=== PATIENT | male | born 1990 | race Caucasian/White ===

== ENCOUNTER 2018-06-10 20:37 | Emergency (ER) | payer SELFPAY ==
[2018-06-10 20:49] VITALS: BP 122/73; PULSE 86; TEMP 98.8; BMI 22.4
[2018-06-10] MEDS ORDERED: DEXAMETHASONE LIQUID 0.5 MG/5 ML 240 ML BULK BOTTLE PO ONE (22:04)
[2018-06-10] MEDS ORDERED: PENICILLIN G BENZATHINE 1,200,000 UNIT/2 ML PFS IM ONE (22:04)
[2018-06-10] MEDS ORDERED: DEXAMETHASONE SOD PHOSPHATE 10 MG/1 ML VIAL ONE (22:07)
[2018-06-10] MEDS ORDERED: PENICILLIN G BENZATHINE 2,400,000 UNIT/4 ML PFS ONE (22:08)
--- NOTE | 2018-06-10 22:08 | PDOC ---
History of Present Illness - General Chief Complaint: Sore Throat Stated Complaint: FEVER AND SORE THROAT Time Seen by Provider: 06/10/18 21:42 - History of Present Illness Initial Comments: 06/10/18 22:05 28 y/o male without comorbidities presents for evaluation of sore throat and fever 2 days Past History - Past Medical History Home Medications: Ambulatory Orders NK [No Known Home Medication] 06/10/18 - Suicide/Smoking/Psychosocial Hx Smoking History: Unknown if ever smoked Hx Alcohol Use: No Drug/Substance Use Hx: No Review of Systems - Review of Systems Constitutional: Yes: Fever HEENTM: Yes: Throat Pain, Difficulty Swallowing *Physical Exam - Vital Signs Last Vital Signs Temp Pulse Resp BP Pulse Ox 98.8 F 86 20 122/73 95 06/10/18 20:45 06/10/18 20:45 06/10/18 20:45 06/10/18 20:45 06/10/18 20:45 - Physical Exam Comments: 06/10/18 22:05 HEAD: NC/AT EYES: Conjuntiva clear Ears: Canals and TM's normal NOSE: No d/c THROAT: Moist mucous membrances, oral pharanx erythemic with exudate, uvula midline NECK: Supple without adenopathy CARDIAC: S1 S2 LUNGS: CTA Full and Equal breath sounds ABDOMEN: Soft NT ND MS: Full ROM in all joints without edema NEUROLOGIC: No gross sensory or motor deficits, NVID SKIN: Normal color and temperature no lesions or rashes Medical Decision Making - Medical Decision Making 06/10/18 22:06 We'll treat presumptively for strep throat with Bicillin *DC/Admit/Observation/Transfer Diagnosis at time of Disposition: Strep pharyngitis - Discharge Dispostion Disposition: HOME Condition at time of disposition: Stable Decision to Admit order: No - Referrals Referrals: Lolis Thompson MD [Staff Physician] - - Patient Instructions Printed Discharge Instructions: Strep Throat, DI for Strep Throat Additional Instructions: He do not require further treatment. He will given a one-time injection of Bicillin. He may take Tylenol as directed for pain should you require additional pain medication. Follow-up with internal medicine in one to 2 days for further evaluation and treatment options. - Post Discharge Activity
== END 2018-06-10 22:21 | disposition home or self-care (01) ==
LOC: JERFT 20:37
DX: J02.0 Streptococcal pharyngitis (principal); B95.5 Unspecified streptococcus as the cause of diseases classified elsewhere
CPT/HCPCS: 99281-25

== ENCOUNTER 2019-03-14 20:38 | Emergency (ER) | payer OTHER ==
[2019-03-14 20:45] VITALS: BP 122/72; BMI 22.4
[2019-03-14] MEDS ORDERED: IBUPROFEN 600 MG TABLET (FP) PO ONE ×2 (20:46→21:24)
--- NOTE | 2019-03-14 20:46 | PDOC ---
Rapid Medical Evaluation Chief Complaint: Sore Throat Time Seen by Provider: 03/14/19 20:42 Medical Evaluation: Allergies Allergy/AdvReac Type Severity Reaction Status Date / Time No Known Allergies Allergy Verified 06/10/18 22:06 03/14/19 20:43 HPI: Sore throat and flu like symptoms x4 days PE: OP clear ORDERS: Rapid strep Motrin (Tylenol prior to arrival) Discharge Disposition - Diagnosis Acute pharyngitis - Referrals - Patient Instructions - Post Discharge Activity
--- NOTE | 2019-03-14 22:29 | PDOC ---
History of Present Illness - General Chief Complaint: Sore Throat Stated Complaint: SORE THROAT Time Seen by Provider: 03/14/19 20:42 History Source: Patient - History of Present Illness Initial Comments: 03/14/19 22:27 Chief complaint: Fever Patient is a healthy 29-year-old male with 3 to 4 days of fever, cough, sore throat. Patient vomited yesterday but not today. Patient is drinking Powerade in the ER. Patient took Tylenol prior to coming. states that Tylenol and Motrin have not been helping. She states she was diagnosed with the flu 2 days ago. GENERAL/CONSTITUTIONAL: +fever, no: Weakness. dizziness HEAD, EYES, EARS, NOSE AND THROAT: No change in vision. No ear pain or discharge. No sore throat. CARDIOVASCULAR: No chest pain RESPIRATORY: No shortness of breath +cough GASTROINTESTINAL: No pain, nausea, +vomiting yesterday, diarrhea or constipation GENITOURINARY: No dysuria MUSCULOSKELETAL: No neck or back pain SKIN: No rash NEUROLOGIC: No headache, vertigo, loss of consciousness, or loss of sensation. GENERAL: The patient is awake, alert, and fully oriented, in no acute distress. HEAD: Normal with no signs of trauma. EYES: Pupils equal, round and reactive to light, sclera anicteric, conjunctiva clear. ENT: pharynx: Mild erythema, no exudate, uvula midline NECK: supple CHEST: clear, nontender, rr ABD: soft, nontender BACK: no tenderness or signs of injury EXTREMITIES: Normal range of motion, no edema. NEUROLOGICAL: Normal speech, normal gait. SKIN: Warm, Dry Past History - Past Medical History Allergies/Adverse Reactions: Allergies Allergy/AdvReac Type Severity Reaction Status Date / Time No Known Allergies Allergy Verified 03/14/19 20:45 Home Medications: Ambulatory Orders NK [No Known Home Medication] 06/10/18 COPD: No - Psycho Social/Smoking Cessation Hx Smoking History: Never smoked Hx Alcohol Use: No Drug/Substance Use Hx: No *Physical Exam - Vital Signs Last Vital Signs Temp Pulse Resp BP Pulse Ox 102.9 F H 131 H 20 122/72 99 03/14/19 20:42 03/14/19 20:42 03/14/19 20:42 03/14/19 20:42 03/14/19 20:42 ED Treatment Course - Medications Given in the ED: ED Medications Discontinued Medications Generic Name Dose Route Start Last Admin Trade Name Wendy PRN Reason Stop Dose Admin Ibuprofen 600 mg 03/14/19 20:46 03/14/19 21:26 Motrin - PO 03/14/19 20:47 600 mg ONCE ONE Administration Medical Decision Making - Medical Decision Making 03/14/19 22:28 Healthy 29-year-old male with fever, cough, sore throat for 3 to 4 days. states that fever is not being well controlled with Tylenol and Motrin. Patient vomited yesterday but not today. was diagnosed with flu 2 days ago. Patient's abdominal exam is benign. Patient is drinking fluids. Patient does not appear acutely ill although he is running 102.9 fever and his heart rate is 131. Patient was given Motrin at the beginning of the exam. Will reassess. Swabs for flu and strep were sent. 03/14/19 22:41 Patient's temperature is now 100.3. Awaiting flu and strep screening from lab. Signed out to FADY Yusuf for rest of evaluation and management Discharge - Discharge Information Problems reviewed: Yes Clinical Impression/Diagnosis: Flu-like symptoms Acute pharyngitis Qualifiers: Pharyngitis/tonsillitis etiology: unspecified etiology Qualified Code(s): J02.9 - Acute pharyngitis, unspecified - Follow up/Referral Referrals: Faustino Gannon MD [Primary Care Provider] - - Patient Discharge Instructions - Post Discharge Activity
[2019-03-14 22:39] VITALS: TEMP 100.3
[2019-03-14 22:45] VITALS: PULSE 104
--- NOTE | 2019-03-14 23:23 | PDOC ---
*Physical Exam - Vital Signs Last Vital Signs Temp Pulse Resp BP Pulse Ox 100.3 F H 104 H 17 122/72 98 03/14/19 22:39 03/14/19 22:39 03/14/19 22:39 03/14/19 20:42 03/14/19 22:39 - Physical Exam General Appearance: Yes: Nourished, Appropriately Dressed. No: Apparent Distress HEENT: positive: KEN, Normal ENT Inspection, Pharynx Normal Neck: positive: Supple Respiratory/Chest: positive: Lungs Clear, Normal Breath Sounds. negative: Respiratory Distress, Accessory Muscle Use Cardiovascular: positive: Regular Rhythm, Regular Rate Musculoskeletal: positive: Normal Inspection Extremity: positive: Normal Inspection Integumentary: positive: Normal Color Neurologic: positive: Fully Oriented, Alert, Normal Mood/Affect, Normal Response <Anthony Garza - Last Filed: 03/14/19 23:29> - Vital Signs Last Vital Signs Temp Pulse Resp BP Pulse Ox 100.3 F H 104 H 17 122/72 98 03/14/19 22:39 03/14/19 22:39 03/14/19 22:39 03/14/19 20:42 03/14/19 22:39 <Chris Coronel - Last Filed: 03/15/19 02:31> ED Treatment Course - Medications Given in the ED: ED Medications Discontinued Medications Generic Name Dose Route Start Last Admin Trade Name Freq PRN Reason Stop Dose Admin Ibuprofen 600 mg 03/14/19 20:46 03/14/19 21:26 Motrin - PO 03/14/19 20:47 600 mg ONCE ONE Administration <Anthony Garza - Last Filed: 03/14/19 23:29> - Medications Given in the ED: ED Medications Discontinued Medications Generic Name Dose Route Start Last Admin Trade Name Freq PRN Reason Stop Dose Admin Ibuprofen 600 mg 03/14/19 20:46 03/14/19 21:26 Motrin - PO 03/14/19 20:47 600 mg ONCE ONE Administration <Chris Coronel - Last Filed: 03/15/19 02:31> Medical Decision Making - Medical Decision Making 03/14/19 23:29 I assumed care of this 29-year-old male presented with complaint of 3-day history of fevers, body aches, nasal congestion and cough status post exposure to flu. Rapid flu test came back positive influenza B. Strep test negative. Patient with fever of 102.9 on presentation which has improved to 100.2 after Motrin. Patient clinically stable for patient management on Tamiflu twice daily for 5 days, Tessalon Perles as needed for cough and Atrovent nasal sprays for nasal congestion with advised to alternate between Tylenol Motrin as needed for fever and increase fluid intake with PCP follow-up. <Anthony Garza - Last Filed: 03/14/19 23:29> - Medical Decision Making 03/15/19 02:31 The patient was seen and evaluated in conjunction with FADY Garza under my direct supervision, ancillary studies were reviewed. I agree with the plan as outlined by FADY Garza. <Chris Coronel - Last Filed: 03/15/19 02:31> Discharge - Discharge Information Problems reviewed: Yes - Admission No <Anthony Garza - Last Filed: 03/14/19 23:29> <Chris Coronel - Last Filed: 03/15/19 02:31> - Discharge Information Clinical Impression/Diagnosis: Influenza B Acute pharyngitis Qualifiers: Pharyngitis/tonsillitis etiology: unspecified etiology Qualified Code(s): J02.9 - Acute pharyngitis, unspecified Condition: Stable Disposition: HOME - Additional Discharge Information Prescriptions: Benzonatate [Tessalon Pearls -] 100 mg PO Q8H PRN #20 capsule PRN Reason: Cough Ipratropium [place] 2 spray NS BID PRN #1 spray PRN Reason: nasal congestion Ondansetron [Zofran *Odt*] 4 mg SL TID #21 od.tablet Oseltamivir Phosphate [Tamiflu -] 75 mg PO DAILY #10 capsule - Follow up/Referral Referrals: Faustino Gannon MD [Primary Care Provider] - - Patient Discharge Instructions Patient Printed Discharge Instructions: DI for Viral Upper Respiratory Infection -- Adult, DI for Influenza -- Adult Additional Instructions: Your strep test is negative. Your symptoms likely caused by viral infection. Take prescribed medication as prescribed for viral infection. Alternate between Tylenol Motrin as needed for fever. Increase fluid intake. Follow-up with primary care - Post Discharge Activity
== END 2019-03-15 00:12 | disposition home or self-care (01) ==
LOC: JERFT 20:38 → JER 20:38
DX: J10.1 Influenza due to other identified influenza virus with other respiratory manifestations (principal)
CPT/HCPCS: 87070; 87077; 87804; 87880; 99282-25

== ENCOUNTER 2023-12-15 13:24 | Emergency (ER) | payer OTHER ==
[2023-12-15 13:31] VITALS: BP 118/57; PULSE 68; RESP 18; TEMP 97.9; BMI 23.7
[2023-12-15] MEDS ORDERED: LIDOCAINE 4% PATCH TP ONE (14:10)
[2023-12-15] MEDS ORDERED: ACETAMINOPHEN 500 MG TABLET (FP) ONE (14:10)
[2023-12-15] MEDS ORDERED: KETOROLAC TROMETHAMINE 30 MG/1 ML VIAL ONE (14:10)
[2023-12-15] MEDS: LIDOCAINE 4% PATCH TP ONE (14:15)
[2023-12-15] MEDS: KETOROLAC TROMETHAMINE 30 MG/1 ML VIAL IM ONE (14:16)
[2023-12-15] MEDS: ACETAMINOPHEN 500 MG TABLET (FP) PO ONE (14:16)
[2023-12-15] MEDS ORDERED: LIDOCAINE PATCH REMOVAL MC SCH (22:00)
== END 2023-12-15 15:29 | disposition home or self-care (01) ==
LOC: JER 13:24 → JERFT 13:24
PROC: 3E0133Z Introduction of Anti-inflammatory into Subcutaneous Tissue, Percutaneous Approach (ICD-10-PCS; principal; 2023-12-15)
DX: M54.50 Low back pain, unspecified (principal); V49.40XA Driver injured in collision with unspecified motor vehicles in traffic accident, initial encounter; Y92.410 Unspecified street and highway as the place of occurrence of the external cause
CPT/HCPCS: 72100-TC-FY; 99284-25